=== PATIENT | male | born 1960 | race Caucasian/White ===

== ENCOUNTER → 2017-01-14 | Outpatient (CLI) | payer BC ==
[~2017-01-14] MED LIST: GLUCOPHAGE500 MG/TAB; NICOTINIC ACID; PRINIVIL20 MG; PROTONIX 40MG T40 MG PO; TRADJENTA5 MG; ZOCOR5 MG
== END ==
LOC: COL.RAD 09:22
DX: M25.551 Pain in right hip (principal)
CPT/HCPCS: J3301; Q9967